=== PATIENT | female | born 1960 | race Caucasian/White ===

== ENCOUNTER → 2019-10-28 | Outpatient (CLI) | payer MEDICARE, OTHER ==
--- NOTE | 2019-10-28 16:40 | MR ---
EXAMINATION TYPE: MR knee LT wo con DATE OF EXAM: 10/28/2019 COMPARISON: Plain film 10/27/2019 HISTORY: Left knee pain S/P slip and fall TECHNIQUE: Multiplanar, multisequence imaging of the left knee is performed without IV contrast. FINDINGS: MEDIAL MENISCUS: Suspect some mucoid degeneration in the posterior horn medial meniscus LATERAL MENISCUS: Anterior horn of the lateral meniscus is not seen definitively CRUCIATE LIGAMENTS: There is abnormal thickening and abnormal increased signal of the anterior crucia te ligament, may be partial tear, mucoid degeneration COLLATERAL LIGAMENTS: The medial collateral ligament and lateral collateral ligament complex are inta ct and unremarkable. EXTENSOR MECHANISM: Visualized quadriceps and patellar tendons are intact. EFFUSION: There is a suprapatellar joint effusion. Fluid signal courses along the distal femur both anteriorly and medially and is not entirely included on the exam. POPLITEAL CYST: No popliteal/yap cyst. 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 IMPRESSION: There is significant osteoarthritis. Probable degenerative tear of the anterior horn lateral meniscus . Findings at the anterior cruciate ligament as described. Fluid signal along the distal femur be due to residua of patient's prior fixation, hardware no longer seen on plain film.
== END | disposition home or self-care (01) ==
LOC: RADMRIMAIN 15:08
PROVIDERS: ATTEND Orthopaedic Surgery
DX: M17.12 Unilateral primary osteoarthritis, left knee (principal); M23.8X2 Other internal derangements of left knee; T84.195A Other mechanical complication of internal fixation device of left femur, initial encounter